=== PATIENT | male | born 2000 | race Caucasian/White ===

== ENCOUNTER → 2019-05-21 | Outpatient (CLI) | payer BC ==
--- NOTE | 2019-05-21 12:54 | XR ---
EXAMINATION TYPE: XR knee limited LT DATE OF EXAM: 05/21/2019 COMPARISON: NONE HISTORY: 18 year-old male left knee pain TECHNIQUE: 2 views FINDINGS: No acute fracture, subluxation, or dislocation. The degree of penetration makes it difficult to asses s for underlying joint effusion. IMPRESSION: Possible underlying joint effusion. Limited assessment due to the degree of penetration. No acute oss eous antibody seen. If pain persists or concern for internal derangement, MRI can be considered.
== END | disposition home or self-care (01) ==
LOC: RADXRYALE 09:28
PROVIDERS: ATTEND Internal Medicine
DX: M25.562 Pain in left knee (principal)